=== PATIENT | male | born 2000 | race Caucasian/White ===

== ENCOUNTER → 2023-06-17 10:33 | Outpatient (REF) | payer BC, OTHER, SELFPAY ==
[2023-06-17 12:01] LABS: % Basophils 0.6 % (0-2); % Eosinophils 2.4 % (0-6); % Immature Granulocytes 0.1 % (0-0.5); % Lymphocytes 27.9 % (20.5-51.1); % Monocytes 10.9 % (1.7-9.3); % Neutrophils 58.1 % (42.2-75.2); Absolute Eosinophils 0.2 10^3/uL (0-0.7); Absolute Lymphocytes 1.9 10^3/uL (1.2-3.4); Absolute Monocytes 0.7 10^3/uL (0.1-0.6); Absolute Neutrophils 3.9 10^3/uL (1.4-6.5); Hematocrit 45.3 % (39.0-52.0); Hemoglobin 15.7 g/dL (13.0-18.0); Mean Corp Hgb Conc. 34.7 g/dL (33.0-37.0); Mean Corpuscular Hgb 31.2 pg (27.0-31.0); Mean Corpuscular Volume 90.1 fL (80.0-94.0); Mean Platelet Volume 9.8 fL (7.4-10.4); Nucleated Red Blood Cells % 0 % (-); Platelet Count 356 10^3/uL (130-400); Red Blood Cell Count 5.03 10^6/uL (4.70-6.10); Red Cell Dist. Width 12.3 % (11.5-14.5); White Blood Cell Count 6.7 10^3/uL (4.8-10.8)
[2023-06-17 12:46] LABS: ALT (SGPT) 28 U/L (0-50); AST (SGOT) 31 U/L (17-59); Albumin 4.7 g/dl (3.5-5.0); Alkaline Phosphatase 87 U/L (38-126); Blood Urea Nitrogen 14 mg/dl (9-20); Carbon Dioxide 30 mmol/L (22-30); Chloride 100 mmol/L (98-107); Glucose 89 mg/dl (70-99); HDL Cholesterol 42 mg/dl; LDL Cholesterol, Calculated 117 mg/dl; Potassium 4.2 mmol/L (3.5-5.1); Sodium 137 mmol/L (135-145); Total Bilirubin 1.9 mg/dl (0.2-1.3); Total Cholesterol 174 mg/dl (50-199); Total Protein 7.8 g/dl (6.3-8.2); Triglyceride 79 mg/dl (10-149); Very Low Density Lipoprotein 15 mg/dl (0-30); eGFR > 60.00
[2023-06-17 12:50] LABS: Vitamin D, 25-OH*** 32.3 ng/mL (30-80)
[2023-06-17 13:59] LABS: Glycohemoglobin (HgbA1c) 5.5 % (4.0-5.6)
== END ==
LOC: HWLAB 10:33
PROVIDERS: ATTENDING PHYSICIAN Pediatrics
DX: Z00.00 Encounter for general adult medical examination without abnormal findings (principal)
CPT/HCPCS: 36415; 80053; 80061; 82306; 83036; 85025

== ENCOUNTER → 2023-12-21 09:43 | Outpatient (REF) | payer BC, SELFPAY | LOC: RST 09:43 | PROVIDERS: ATTENDING PHYSICIAN Psychiatry & Neurology Neurology | DX: R13.10 Dysphagia, unspecified (principal); G11.8 Other hereditary ataxias | CPT/HCPCS: 74230; 92611 ==

== ENCOUNTER 2024-01-20 09:13 | Outpatient (RCR) | payer BC, SELFPAY | END 2024-01-20 23:59 | disposition home or self-care (01) | LOC: RST 09:13 | PROVIDERS: ATTENDING PHYSICIAN Psychiatry & Neurology Neurology | DX: G11.8 Other hereditary ataxias (principal); R13.12 Dysphagia, oropharyngeal phase | CPT/HCPCS: 92526; 92610 ==

== ENCOUNTER 2024-02-07 13:36 | Outpatient (RCR) | payer BC, SELFPAY | END 2024-02-07 23:59 | disposition home or self-care (01) | LOC: RST 13:36 | PROVIDERS: ATTENDING PHYSICIAN Psychiatry & Neurology Neurology | DX: G11.8 Other hereditary ataxias (principal); R13.12 Dysphagia, oropharyngeal phase | CPT/HCPCS: 92526 ==

== ENCOUNTER 2024-03-06 11:18 | Outpatient (RCR) | payer BC, SELFPAY | END 2024-03-07 07:35 | disposition home or self-care (01) | LOC: RST 11:18 | PROVIDERS: ATTENDING PHYSICIAN Psychiatry & Neurology Neurology | DX: G11.8 Other hereditary ataxias (principal); R13.12 Dysphagia, oropharyngeal phase | CPT/HCPCS: 92526 ==

== ENCOUNTER 2025-01-15 10:21 | Outpatient (RCR) | payer BC, SELFPAY | END 2025-01-15 23:59 | disposition home or self-care (01) | LOC: ROT 10:21 | PROVIDERS: ATTENDING PHYSICIAN Psychiatry & Neurology Neurology; FAMILY PHYSICIAN Nurse Practitioner | DX: G11.8 Other hereditary ataxias (principal); Z73.6 Limitation of activities due to disability; R26.89 Other abnormalities of gait and mobility; R13.12 Dysphagia, oropharyngeal phase | CPT/HCPCS: 92526; 92610; 97110; 97112; 97116; 97163; 97167; 97530; 97535 ==

== ENCOUNTER 2025-02-20 07:07 | Outpatient (RCR) | payer BC, SELFPAY | END 2025-02-20 23:59 | disposition home or self-care (01) | LOC: ROT 07:07 | PROVIDERS: ATTENDING PHYSICIAN Psychiatry & Neurology Neurology; FAMILY PHYSICIAN Nurse Practitioner | DX: G11.8 Other hereditary ataxias (principal); Z73.6 Limitation of activities due to disability; R13.12 Dysphagia, oropharyngeal phase; R26.89 Other abnormalities of gait and mobility | CPT/HCPCS: 92526; 97110; 97112; 97116; 97530; 97535 ==